=== PATIENT | female | born 1955 | race Caucasian/White ===

== ENCOUNTER → 2019-11-17 | Outpatient (CLI) | payer BC ==
--- NOTE | 2019-11-17 12:45 | MR ---
EXAMINATION TYPE: MR shoulder LT wo con DATE OF EXAM: 11/17/2019 11:58 AM COMPARISON: NONE HISTORY: Pain in left shoulder TECHNIQUE: Multiplanar multispin echo imaging of the left shoulder was performed. FINDINGS: Rotator cuff : Thickening and heterogeneity of the supraspinatus tendon compatible chronic tendinopat hy. No evidence for full-thickness tear or partial tear. The subscapularis constituent of the rotator cuff is intact. Bursa: No bursal effusion or thickening is seen. Musculature: There is no muscular tear, contusion, or atrophy. Acromioclavicular joint : There are mild degenerative changes of the acromioclavicular joint. There is no anterior or lateral acromial downsloping. Subcoracoid fluid identified. Osseous structures : There are no fractures or regions of abnormal bone marrow signal intensity. Long biceps tendon : The biceps tendon is normally situated within the bicipital groove. Fluid is otilio ntified within the biceps tendon sheath which may reflect biceps tenosynovitis.. No complete or parti al biceps tendon tear is present. Glenohumeral Joint fluid : There is no glenohumeral joint effusion. Cartilage and Bone : No focal hyaline cartilage defects are noted. No Hill-Sachs, reverse Hill-Sachs, or bony Bankart lesions are seen. Labrum : There are no SLAP or soft tissue Bankart lesions. No paralabral cysts are seen. OTHER FINDINGS : none IMPRESSION: 1. Chronic tendinopathy supraspinatus tendon without evidence for tear. 2. Fluid within the biceps tendon sheath may reflect biceps tendon synovitis. 3. Fluid along the undersurface of the coracoid.
== END | disposition home or self-care (01) ==
LOC: RADMRIMAIN 11:14
PROVIDERS: ATTEND Orthopaedic Surgery
DX: M67.814 Other specified disorders of tendon, left shoulder (principal); M25.412 Effusion, left shoulder

== ENCOUNTER → 2020-06-28 | Outpatient (CLI) | payer MEDICARE | END | disposition home or self-care (01) | LOC: LABWHC1 14:47 | PROVIDERS: ATTEND Orthopaedic Surgery | DX: Z01.812 Encounter for preprocedural laboratory examination (principal) | CPT/HCPCS: 87070 ==

== ENCOUNTER 2020-07-08 12:59 | Observation (INO) | payer BC, MEDICARE ==
[2020-07-04 18:14] VITALS: BMI 35.2
--- NOTE | 2020-07-07 11:59 | HP ---
HISTORY AND PHYSICAL REASON FOR ADMISSION: Surgery scheduled 07/08/2020 HISTORY OF PRESENT ILLNESS: Sammie Orr is a 64-year-old patient seen with symptomatic right knee osteoarthritis. We discussed options. She elected to proceed with right total knee arthroplasty. Consent was obtained. Medical clearance was provided by Dr. Rodas. PAST MEDICAL HISTORY: Hypertension, hyperlipidemia, gastroesophageal reflux disease. PAST SURGICAL HISTORY: D and C, foot surgery, knee arthroscopy, lumbar spine surgery. DAILY MEDICATIONS: Amitriptyline, atenolol, Baclofen, [place], omeprazole. ALLERGIES: FLEXERIL, IODINE. SOCIAL HISTORY: She smokes half pack of cigarettes daily. PHYSICAL EVALUATION OF THE RIGHT KNEE: Range of motion is -2/2 to 115. Tenderness along the medial joint line. Crepitus medial patellofemoral compartments with range of motion. Pain with patellofemoral compression. Ligaments stable. Hip rotation without pain. Distal neurovascular exam is intact. RADIOGRAPHS: Radiographs of the right knee reveal severe osteoarthritic changes. IMPRESSION: 1. Right knee osteoarthritis. 2. Hypertension. 3. Hyperlipidemia. 4. Gastroesophageal reflux disease. PLAN: Right total knee arthroplasty. MMODL / IJN: [id number] /
[~2020-07-08 12:59] MED LIST: ACETAMINOPHEN TAB 500 MG TAB PO PRN; DEXAMETHASONE SOD PHOSPHATE 4 MG/ML 1 ML VIAL IV ONE; MELOXICAM 7.5 MG TAB PO PRN; ROPIVACAINE/EPI/CLONIDINE/KET 50 ML SYRINGE MISCELLANE PRN; TRANEXAMIC ACID 1,000 MG in SODIUM CHLORIDE 0.9% 100 ML IVPB PRN
[2020-07-08] MEDS: LACTATED RINGERS 1,000 ML IV SCH ×3 (14:00→18:02)
[2020-07-08] MEDS ORDERED: ONDANSETRON 4 MG/2 ML VIAL ONE (14:02)
[2020-07-08] MEDS ORDERED: LIDOCAINE 1% (10MG/ML) FOR IV START INTRADERMA ONE (14:10)
[2020-07-08] MEDS ORDERED: MIDAZOLAM 2 MG/2 ML VIAL IVP ONE (14:20)
[2020-07-08] MEDS ORDERED: fentaNYL (PF) 50 MCG/ML 2 ML AMP IVP ONE (14:20)
[2020-07-08] MEDS ORDERED: SODIUM CHLORIDE 0.9% 100 ML BAG ONE (14:47)
[2020-07-08] MEDS ORDERED: TRANEXAMIC ACID 1,000 MG/10 ML VIAL ONE (14:47)
[2020-07-08] MEDS ORDERED: PROPOFOL 10 MG/ML 20 ML VIAL IV ONE (14:47)
[2020-07-08] MEDS ORDERED: MIDAZOLAM 2 MG/2 ML VIAL ONE (14:47)
[2020-07-08] MEDS ORDERED: fentaNYL (PF) 50 MCG/ML 2 ML AMP ONE (14:47)
[2020-07-08] MEDS ORDERED: ROPIVACAINE 5 MG/ML 30 ML VIAL ONE (14:47)
--- NOTE | 2020-07-08 15:36 | P.ANPRN ---
Procedure Note - Anesthesia - Nerve Block Performed Right Adductor Canal Infusion Time Out Performed: Yes (1415) Date of Procedure: 07/08/20 Procedure Start Time: 14:17 Procedure Stop Time: 14:24 Location of Patient: PreOp Indication: Acute Post-Operative Pain, Requested by Surgeon Specifically requested for management of pain by : Avinash Agosto Sedation Type: Sedate with meaningful contact maintained Preparation: Sterile Prep Position: Supine Catheter Depth at Skin (cm): 9 Catheter: Indwelling Needle Types: Pajunk Needle Gauge: 21 Ultrasound used to visualize needle placement: Yes Ultrasound used to observe medication spread: Yes Injectate: 0.5% Ropivacaine (see comment for volume) (15cc) Blood Aspirated: No Pain Paresthesia on Injection Noted: No Resistance on Injection: Normal Image Stored and Saved: Yes Events: Uneventful and Well Tolerated Right iPack Single Time Out Performed: Yes (1415) Date of Procedure: 07/08/20 Procedure Start Time: 14:25 Procedure Stop Time: 14:31 Location of Patient: PreOp Indication: Acute Post-Operative Pain, Requested by Surgeon Sedation Type: Sedate with meaningful contact maintained Preparation: Sterile Prep Position: Supine Catheter: None Needle Types: Pajunk Needle Gauge: 21 Ultrasound used to visualize needle placement: Yes Ultrasound used to observe medication spread: Yes Injectate: 0.5% Ropivacaine (see comment for volume) (15cc) Blood Aspirated: No Pain Paresthesia on Injection Noted: No Resistance on Injection: Normal Image Stored and Saved: Yes Events: Uneventful and Well Tolerated
[2020-07-08] MEDS ORDERED: LACTATED RINGERS 1,000 ML IV ONE (15:52)
[2020-07-08] MEDS ORDERED: HYDROmorphone 0.2 MG/1 ML SYRINGE IVP PRN (16:33)
[2020-07-08] MEDS ORDERED: HYDROcodone/APAP 7.5-325MG 1 EACH TAB PO PRN (16:33)
[2020-07-08] MEDS ORDERED: HYDROcodone/APAP 5-325MG 1 EACH TAB PO PRN (16:33)
[2020-07-08] MEDS ORDERED: NALOXONE 0.4 MG/ML 1 ML VIAL IV PRN (16:33)
[2020-07-08] MEDS ORDERED: ONDANSETRON 4 MG/2 ML VIAL IVP PRN (16:33)
[2020-07-08] MEDS ORDERED: HYDROmorphone 0.5 MG/0.5 ML SYRINGE IVP PRN (16:33)
--- NOTE | 2020-07-08 16:33 | P.OP ---
Date of Procedure: 07/08/20 Preoperative Diagnosis: Right knee osteoarthritis Postoperative Diagnosis: Right knee osteoarthritis Procedure(s) Performed: Right total knee arthroplasty Implants: 1. Depuy attune size 6 right narrow cruciate retaining cemented femur 2. Depuy attune size 5 fixed bearing cemented tibial baseplate 3. Depuy attune size 5 fixed bearing cruciate retaining 10 mm polyethylene tibial insert 4. 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 After treatment options were discussed, she elected to proceed with total knee arthroplasty Operative Findings: See description of procedure Description of Procedure: Patient was taken to the operative suite after having an adductor canal catheter placed by the department of anesthesia. Patient underwent a spinal anesthetic by the department of anesthesia. Patient was given preoperative IV intake antibiotics and TXA. A well-padded tourniquet was placed about the right lower extremity. The lower extremity was then prepped and draped in the normal sterile orthopedic fashion. The extremity was elevated, a tourniquet was insufflated to 300. A standard anterior incision was made sharply through skin. Dissection was taken down through the subcutaneous soft tissues down to the extensor mechanism. A medial arthrotomy was performed, patella was everted and knee was flexed. There was advanced osteoarthritis noted. I introduced my distal intramedullary femoral drill. I then introduced the distal femoral cu tting jig. Brian RICHEY secured the cutting jig with 2 pins. I held retractors in position while Brian RICHEY performed the distal femoral resection through the guide area we now removed her distal femoral cutting guide. We now placed our 4-in-1 femoral cutting block and positioned and it was secured with 2 pins by Brian RICHEY while I held the block in position. The distal femoral finishing was now completed. A proximal tibial cutting guide was positioned. I held the guide in the appropriate position with both hands well Brian RICHEY inserted stabilizing pins into the guide. Proximal tibial cut was made. We now placed a trial femoral component into position, along with an appropriate size tibial tray and insert. We now took the knee through range of motion and had full extension good flexion and good overall soft tissue balance noted. The patella was everted and stabilized with 2 towel clips held by Brian RICHEY while I performed a flush with patellar quad tendon utilizing a fresh sawblade. We templated the patella, appropriate drill holes were made. An appropriate trial patella was positioned, knee was taken through full range of motion with the patella tracking very nicely. The trial patella was removed. Drill holes were made through the femoral component. All trial components were removed after marking off the appropriate rotation of the tibia. Retractors were now positioned along the proximal tibia. An appropriate keel punch was made with the appropriate size tibial guide by myself on Brian RICHEY assisted by holding retractors. At this point appropriate size implants were chosen and opened. The joint was irrigated copiously with pulse lavage mechanical irrigation. The posterior capsule was infiltrated with local analgesic. The wound was irrigated with pulse lavage mechanical irrigation. We mixed antibiotic methylmethacrylate. We placed the knee into flexion. We placed multiple retractors assisted by Brian RICHEY to expose the proximal tibia. Once the methyl methacrylate was ready, the tibial component was cemented into place removing any excess methylmethacrylate form by both myself and Brian RICHEY. The femoral component was cemented into place removing the removing any excess methylmethacrylate performed by both myself and Brian RICHEY. We then inserted the appropriate size polyethylene tibial insert. We made sure that it was locked into position. We took the knee into full extension, and then back in a flexion making sure we had removed any excess methylmethacrylate. The patellar component was then cemented down and secured with clamp. Excess methylmethacrylate removed. We kept the knee in full extension, patellar clamp in position until methylmethacrylate had hardened. Once it had hardened the patellar clamp was removed. The knee was taken through full range of motion. The patella tracked nicely. There was good soft tissue balancing. The tourniquet was now released. Additional hemostasis was achieved via electrocautery. A second gram of TXA was given. The wound again was irrigated with pulse lavage mechanical irrigation. The superficial soft tissues were infiltrated local analgesic. The extensor mechanism was repaired with Ethibond. We checked the repair with range of motion and it was stable. The subcutaneous soft tissues were repaired with Vicryl in layers. The skin was approximated with pernio/Dermabond. Sterile dressings were applied followed by loose web roll and Holger bandage. The patient was transferred to a bed, and taken to recovery in stable and satisfactory condition. Brian RICHEY assisted with this complex procedure.
[2020-07-08] MEDS: HYDROmorphone 0.5 MG/0.5 ML SYRINGE IVP PRN ×4 (17:02→23:41)
[2020-07-08] MEDS ORDERED: ROPIVACAINE 0.2%-NS ON-Q PUMP 2 MG/ML EACH MISCELLANE ONE (17:18)
[2020-07-08] MEDS ORDERED: fentaNYL (PF) 50 MCG/ML 2 ML AMP IV ONE (17:30)
--- NOTE | 2020-07-08 19:05 | XR ---
EXAMINATION TYPE: XR knee limited RT DATE OF EXAM: 07/08/2020 COMPARISON: NONE HISTORY: Postop knee surgery TECHNIQUE: 2 views FINDINGS: There is right knee prosthesis. Components are in anatomic position. IMPRESSION: No complicating process seen.
[2020-07-08] MEDS: ENOXAPARIN 30 MG/0.3 ML SYRINGE SQ SCH (20:27)
[2020-07-08] MEDS: SENNOSIDES-DOCUSATE SODIUM 1 EACH TAB PO SCH (20:27)
--- NOTE | 2020-07-08 22:07 | P.CONS ---
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 She reported ongoing pain at the right knee, 8 out of 10 at the time of interview. She denied additional complaints. Denied chest pain, shortness of breath, sore throat, fever, weakness, numbness, tingling. Denied abdominal pain, nausea, vomiting, diarrhea. Reports compliance with her medications at home. Review of systems: Pertinent positives and negatives as discussed in HPI, a complete review of systems was performed and all other systems are negative. Physical examination: General: non toxic, no distress, appears at stated age, Obese Derm: no unusual rashes/lesions no unusual ecchymoses, warm, dry Head: atraumatic, normocephalic, symmetric Eyes: EOMI, no lid lag, anicteric sclera, pupils equal round reactive to light ENT: Nose and ears atraumatic, no thrush, no pharyngeal erythema Neck: No thyromegaly, no cervical lymphadenopathy, trachea midline, supple Mouth: no lip lesion, mucus membranes moist Cardiovascular: S1S2 reg, no murmur, positive posterior tibial pulse bilateral, no edema, capillary refill less than 2 seconds Lungs: CTA bilateral, no rhonchi, no rales , no accessory muscle use Abdominal: soft, nontender to palpation, no guarding, no appreciable organomegaly, normal bowel sounds Ext: no gross muscle atrophy, muscle strength 5 out of 5 of bilateral upper extremities, strength 3 out of 5 of the left lower extremity, right lower extremity able to move toes with strength at the ankle within normal limits but otherwise limited due to pain postoperatively, overlying Holger bandage in place on the right knee, no contractures, Neuro: CN II-XI grossly intact, light touch intact all 4 extremities, finger to nose within normal limits, Psych: Alert, oriented, appropriate affect Assessment/plan Chronic conditions: hypertension, hyperlipidemia, COPD -Continue with home medications Status post right knee replacement -Management including pain control as per the surgical service We appreciate this opportunity to be involved in this patient's care. We will follow the patient with you. For any further questions, please not hesitate to contact the [facility] inpatient team. Past Medical History Past Medical History: Deep Vein Thrombosis (DVT), GERD/Reflux, Hyperlipidemia, Hypertension Additional Past Medical History / Comment(s): neuropathy, left leg has "loss of feeling" DVT 1999? rt leg after bunion sx, History of Any Multi-Drug Resistant Organisms: MRSA Year Discovered:: 1999? MDRO Source:: rt foot Past Surgical History: Back Surgery, Section, Orthopedic Surgery Additional Past Surgical History / Comment(s): bunionectomy, back sx X2, meniscus sx rt knee Past Anesthesia/Blood Transfusion Reactions: Previous Problems w/ Anesthesia, Postoperative Nausea & Vomiting (PONV) Additional Past Anesthesia/Blood Transfusion Reaction / Comm: prev low b/p in post op Past Psychological History: No Psychological Hx Reported Smoking Status: Current every day smoker Past Alcohol Use History: Rare Additional Past Alcohol Use History / Comment(s): smokes 1/2 ppd Past Drug Use History: None Reported Medications and Allergies Home Medications Medication Instructions Recorded Confirmed Type Amitriptyline HCl 10 mg PO HS 07/04/20 07/04/20 History Atenolol [Tenormin] 50 mg PO BID 07/04/20 07/04/20 History Baclofen 10 mg PO TID 07/04/20 07/04/20 History Diazepam [Valium] 5 mg PO HS PRN 07/04/20 07/04/20 History Furosemide [Lasix] 40 mg PO DAILY 07/04/20 07/04/20 History Gabapentin [Neurontin] 600 mg PO TID 07/04/20 07/04/20 History HYDROcodone/APAP 10-325MG [Anselmo 1 tab PO Q6HR PRN 07/04/20 07/04/20 History 10-325] Losartan Potassium 100 mg PO QAM 07/04/20 07/04/20 History Omeprazole [PriLOSEC] 20 mg PO DAILY 07/04/20 07/04/20 History Rosuvastatin Calcium 5 mg PO DAILY 07/04/20 07/04/20 History amLODIPine [Norvasc] 5 mg PO QAM 07/04/20 07/04/20 History Fluticasone Propion/Salmeterol 1 puff IH BID 07/05/20 07/05/20 History [Airduo Digihaler 113-14 Mcg] Allergies Allergy/AdvReac Type Severity Reaction Status Date / Time cyclobenzaprine Allergy throat Verified 07/08/20 13:31 Swelling Iodinated Contrast Media Allergy Anaphylaxis Verified 07/08/20 13:31 morphine AdvReac Nausea & Verified 07/08/20 13:31 Vomiting Physical Exam Vitals: Vital Signs Temp Pulse Resp BP Pulse Ox 07/08/20 18:00 53 L 18 127/72 99 07/08/20 17:45 51 L 18 117/68 99 07/08/20 17:30 53 L 18 131/72 99 07/08/20 17:15 52 L 18 114/64 99 07/08/20 17:01 53 L 18 118/63 94 L 07/08/20 16:48 97.5 F L 55 L 18 106/59 94 L 07/08/20 13:37 98.9 F 57 L 16 177/98 97 Intake and Output 07/08/20 07/08/20 07/08/20 06:59 14:59 22:59 Intake Total 1050 1020 Output Total 25 Balance 1050 995 Intake: IV 1050 1020 Output: Estimated Blood Loss 25 Other: Weight 92.8 kg 92.8 kg
[2020-07-08] MEDS: diazePAM 5 MG TAB PO PRN (22:48)
[2020-07-09] MEDS: HYDROcodone/APAP 7.5-325MG 1 EACH TAB PO PRN ×3 (01:28→20:48)
[2020-07-09 02:10] LABS: ALT 13 U/L (4-34); AST 27 U/L (14-36); African American GFR (CKD) 81 (>60 ml/min/1.73 sqM); Albumin 3.7 g/dL (3.5-5.0); Albumin/Globulin Ratio 1.3; Alkaline Phosphatase 122 U/L (38-126); Anion Gap 7 mmol/L; Blood Urea Nitrogen 6 mg/dL (7-17); Carbon Dioxide 26 mmol/L (22-30); Chloride 101 mmol/L (98-107); Globulin 2.8 g/dL; Glucose 119 mg/dL (74-99); Non-African American GFR(CKD) 70 (>60 ml/min/1.73 sqM); Potassium 4.4 mmol/L (3.5-5.1); Sodium 134 mmol/L (137-145); Total Bilirubin 0.3 mg/dL (0.2-1.3); Total Protein 6.5 g/dL (6.3-8.2)
[2020-07-09 02:11] LABS: Calcium 8.9 mg/dL (8.4-10.2)
[2020-07-09 02:21] LABS: Basophils % (A) 0 %; Eosinophils % (A) 0 %; HCT 38.7 % (34.0-46.0); HGB 12.8 gm/dL (11.4-16.0); Lymphocytes # (A) 0.6 k/uL (1.0-4.8); Lymphocytes % (A) 7 %; MCH 29.1 pg (25.0-35.0); MCHC 33.1 g/dL (31.0-37.0); MCV 88.1 fL (80.0-100.0); Mean Platelet Volume 7.1; Monocytes # (A) 0.4 k/uL (0-1.0); Monocytes % (A) 5 %; Neutrophils # (A) 7.4 k/uL (1.3-7.7); Neutrophils % (A) 88 %; Platelet Count 231 k/uL (150-450); RBC 4.39 m/uL (3.80-5.40); RDW 13.6 % (11.5-15.5); WBC 8.4 k/uL (3.8-10.6)
[2020-07-09] MEDS: HYDROmorphone 1 MG/ML 1 ML SYRINGE IVP PRN ×6 (03:47→23:46)
[2020-07-09] MEDS ORDERED: KETOROLAC 15 MG/ML 1 ML VIAL IVP PRN (05:49)
[2020-07-09] MEDS: LACTATED RINGERS 1,000 ML IV SCH ×2 (06:53→14:38)
[2020-07-09] MEDS: GABAPENTIN 300 MG CAP PO SCH ×3 (08:30→20:47)
[2020-07-09] MEDS: LOSARTAN 50 MG TAB PO SCH (08:30)
[2020-07-09] MEDS: MELOXICAM 7.5 MG TAB PO SCH (08:31)
[2020-07-09] MEDS: amLODIPine 5 MG TAB PO SCH (08:31)
[2020-07-09] MEDS: PANTOPRAZOLE 40 MG TABLET PO SCH (08:31)
[2020-07-09] MEDS: atenoloL 50 MG TAB PO SCH ×2 (08:31→20:47)
[2020-07-09] MEDS: ENOXAPARIN 30 MG/0.3 ML SYRINGE SQ SCH ×2 (08:31→20:59)
[2020-07-09] MEDS: FUROSEMIDE 40 MG TAB PO SCH (08:31)
[2020-07-09] MEDS: ATORVASTATIN 10 MG TAB PO SCH (08:32)
[2020-07-09] MEDS: SYMBICORT 160-4.5 MCG INHALER INHALATION SCH ×2 (09:06→20:32)
--- NOTE | 2020-07-09 09:24 | P.PN ---
Subjective Progress Note Date: 07/09/20 Pt reports improvement in pain from last night. Good Appetite. No other acute complaints at this time. Objective - Vital Signs Vital signs: Vital Signs Temp 97.9 F 07/09/20 07:48 Pulse 64 07/09/20 07:48 Resp 16 07/09/20 07:48 BP 122/74 07/09/20 07:48 Pulse Ox 93 L 07/09/20 07:48 Intake & Output 07/08/20 07/09/20 07/09/20 18:59 06:59 18:59 Intake Total 2069 Output Total Balance 2044 Weight 92.8 kg Intake: IV 2069 Output: Estimated Blood Loss 25 Other: # Voids 1 - Exam Gen: awake, alert HEENT: normocephalic, atraumatic, good hearing acuity, moist mucous membranes Resp: good air exchange, breathing comfortably with no accessory muscle use CVS: good distal perfusion x 4, GI: soft, NTTP, ND : no SPT, no CVAT, carrera catheter not present MSK: no pitting edema, no clubbing Neuro: non-focal, moving all extremities Psych: cooperative, euthymic mood - Labs CBC & Chem 7: 07/09/20 01:34 07/09/20 01:34 Labs: Abnormal Lab Results - Last 24 Hours (Table) 07/09/20 07/09/20 Range/Units 01:34 01:34 Lymphocytes # 0.6 L (1.0-4.8) k/uL Sodium 134 L (137-145) mmol/L BUN 6 L (7-17) mg/dL Glucose 119 H (74-99) mg/dL Assessment and Plan Assessment: Chronic conditions: hypertension, hyperlipidemia, COPD -Continue with home medications Status post right knee replacement -Management including pain control as per the surgical service We appreciate this opportunity to be involved in this patient's care. We will follow the patient with you. For any further questions, please not hesitate to contact the [facility] [place] inpatient team. Medically stable for discharge when felt appropriate by primary team
[2020-07-09] MEDS: BACLOFEN 10 MG TAB PO SCH ×3 (09:45→20:47)
--- NOTE | 2020-07-09 10:03 | P.PN ---
Progress Note - Text Progress Note Date: 07/09/20 Patient seen at 0650 am 64 y/o female post op day #1 TKA with an adductor canal catheter continuous infusion for post op pain management. Patient complains of no pain relief and states pain last night was 9/10 and today a VAS of 8/10 but decreasing with po and IV pain medications. She denies any lower extremity numbness/weakness/paresthesias. Discussed with patient the option of removing the adductor canal catheter if she feels it is not of benefit. Patient to leave catheter in place for now. Advised and increased in the rate on the infusion device. Will follow up as indicated.
--- NOTE | 2020-07-09 11:44 | P.PN ---
Subjective Progress Note Date: 07/09/20 Principal diagnosis: Right knee osteoarthritis Patient was seen at bedside this morning. On entering room, patient was sitting up in chair with legs elevated. She was icing knee. She says she is in a lot of pain since yesterday. She does not think the adductor canal block worked. She says she was up with physical therapy this morning and it was very difficult to move around on the knee. She says besides the pain, she says it is difficult to put weight on that right knee. With physical therapy, she said she is able to get up to the bathroom and get back to chair, and that was it. She says she has not had a bowel movement yet, but she has been passing gas. She says she has been using incentive spirometer. She says she has pain mostly on the backside of the knee. Patient says she does live at home alone and with a few steps, but she says her neighbor will stay with her for a few days until she is doing better. Patient denies any chest pain, fever, shortness of breath, change in vision. Objective - Vital Signs Vital signs: Vital Signs Temp 97.9 F 07/09/20 07:48 Pulse 64 07/09/20 07:48 Resp 16 07/09/20 07:48 BP 122/74 07/09/20 07:48 Pulse Ox 93 L 07/09/20 07:48 Intake & Output 07/08/20 07/09/20 07/09/20 18:59 06:59 18:59 Intake Total 2069 Output Total Balance 2044 Weight 92.8 kg Intake: IV 2069 Output: Estimated Blood Loss 25 Other: # Voids 1 - Exam Incision is clean, dry, and intact. The silver foam tape is in good condition. There is minimal soft tissue swelling and ecchymosis surrounding the medial and lateral aspects of the incision. Calf is soft, no tenderness with palpation. Plantar flexion, dorsiflexion, EHL, FHL are intact. Sensory exam to light touch throughout the extremity is intact, dorsal pedis pulses 2+. - Labs CBC & Chem 7: 07/09/20 01:34 07/09/20 01:34 Labs: Abnormal Lab Results - Last 24 Hours (Table) 07/09/20 07/09/20 Range/Units 01:34 01:34 Lymphocytes # 0.6 L (1.0-4.8) k/uL Sodium 134 L (137-145) mmol/L BUN 6 L (7-17) mg/dL Glucose 119 H (74-99) mg/dL Assessment and Plan Assessment: Postop day 1 status post right total knee arthroplasty Plan: 1. Right knee osteoarthritis - right total knee arthroplasty performed yeste rday, 07/08/2020. Today, patient is seen at bedside. She is in significant pain, and has been using both IV and oral pain medications. At this time she is not ready to go home today. Would like to get her pain under better control, and have her be able to ambulate out to the feliz and up-and-down a couple stairs. 2. Pain management - continue [place]. Use IV pain medication sparingly. 3. Encourage incentive spirometer use 4. GI prophylaxis - continue senna 5. DVT prophylaxis - continue Lovenox 6. PT/OT - weightbearing as tolerated/with walker. Patient is able to get to the bathroom and back to the bed this morning. Would like patient to walk the feliz and up-and-down a couple stairs before going home. 7. Discharge planning - patient's pain needs to be under better control before going home. Patient also needs to be able to walk down the hallway and up and down a couple stairs with physical therapy. Planning on discharge tomorrow. Time with Patient: Less than 30
[2020-07-09] MEDS: NICOTINE 14MG/24HR PATCH TRANSDERM SCH (11:56)
[2020-07-09] MEDS: SENNOSIDES-DOCUSATE SODIUM 1 EACH TAB PO SCH (20:47)
[2020-07-09] MEDS: AMITRIPTYLINE HCL 10 MG TAB PO SCH (20:47)
[2020-07-09] MEDS: diazePAM 5 MG TAB PO PRN (23:46)
[2020-07-10] MEDS: LACTATED RINGERS 1,000 ML IV SCH ×4 (02:12→16:18)
[2020-07-10] MEDS: HYDROcodone/APAP 7.5-325MG 1 EACH TAB PO PRN ×2 (02:47→08:27)
[2020-07-10] MEDS: HYDROmorphone 1 MG/ML 1 ML SYRINGE IVP PRN (04:55)
[2020-07-10] MEDS: SYMBICORT 160-4.5 MCG INHALER INHALATION SCH ×2 (07:15→20:28)
[2020-07-10] MEDS: LOSARTAN 50 MG TAB PO SCH (08:27)
[2020-07-10] MEDS: GABAPENTIN 300 MG CAP PO SCH ×3 (08:27→20:17)
[2020-07-10] MEDS: ENOXAPARIN 30 MG/0.3 ML SYRINGE SQ SCH ×2 (08:27→20:18)
[2020-07-10] MEDS: atenoloL 50 MG TAB PO SCH ×2 (08:27→20:17)
[2020-07-10] MEDS: NICOTINE 14MG/24HR PATCH TRANSDERM SCH (08:28)
[2020-07-10] MEDS: BACLOFEN 10 MG TAB PO SCH ×3 (08:28→20:17)
[2020-07-10] MEDS: ATORVASTATIN 10 MG TAB PO SCH (08:28)
[2020-07-10] MEDS: MELOXICAM 7.5 MG TAB PO SCH (08:28)
[2020-07-10] MEDS: amLODIPine 5 MG TAB PO SCH (08:29)
[2020-07-10] MEDS: FUROSEMIDE 40 MG TAB PO SCH (08:29)
--- NOTE | 2020-07-10 08:30 | US ---
EXAMINATION TYPE: US venous doppler duplex LE RT DATE OF EXAM: 07/10/2020 7:25 AM COMPARISON: NONE CLINICAL HISTORY: Rule out DVT. Post op total knee x 2 days, SIDE PERFORMED: Right TECHNIQUE: The lower extremity deep venous system is examined utilizing real time linear array sonog alex with graded compression, doppler sonography and color-flow sonography. VESSELS IMAGED: Common Femoral Vein Deep Femoral Vein Greater Saphenous Vein * Femoral Vein Popliteal Vein Small Saphenous Vein * Proximal Calf Veins (* superficial vessels) Difficult sonographic study due to extensive swelling and patients pain tolerance Right Leg: Negative for DVT IMPRESSION: 1. Study is limited due to extensive swelling of the right lower extremity and patient's pain toleran ce for compression. No definite evidence of deep venous thrombosis in the right lower extremity is se en.
[2020-07-10] MEDS: PANTOPRAZOLE 40 MG TABLET PO SCH (08:33)
--- NOTE | 2020-07-10 09:05 | P.PN ---
Subjective Progress Note Date: 07/10/20 Principal diagnosis: Status post right total knee arthroplasty patient is evaluated today at bedside, she is resting in her hospital chair. Patient's pain is still not under control she states. No significant swelling right lower extremity, a Doppler was ordered early this morning. She denies any headaches, lightheadedness, chest pain or shortness of breath. Objective - Vital Signs Vital signs: Vital Signs Temp 99.0 F 07/10/20 07:00 Pulse 66 07/10/20 07:00 Resp 17 07/10/20 07:00 BP 118/62 07/10/20 07:00 Pulse Ox 96 07/10/20 07:00 Intake & Output 07/09/20 07/10/20 07/10/20 18:59 06:59 18:59 Other: # Voids 3 1 - Exam Right lower extremity: Incision is clean, dry, and intact. The foam dressing is in good condition. There is minimal soft tissue swelling and ecchymosis surrounding the medial and lateral aspects of the incision. Calf is soft, no tenderness with palpation. Plantar flexion, dorsiflexion, EHL, FHL are intact. Sensory exam to light touch throughout the extremity is intact, dorsal pedis pulses 2+. - Labs CBC & Chem 7: 07/09/20 01:34 07/09/20 01:34 Assessment and Plan Assessment: Post op day #1 s/p right total knee arthroplasty Plan: Pain control, will dc [place] and start Percocet 5mg/325mg 1 tab q4hr DVT prophylaxis, continue current medication. We'll likely utilize Eliquis at discharge Wound care instructions were discussed Icing and elevating techniques discussed Continue with daily physical therapy, patient will need to utilize stairs Had a long discussion with patient today regarding her activity level of the need to get up and continue moving. She will utilize the walker at all times during this period Discharge planning: Hopeful discharged to home tomorrow, we'll discuss case management possibility of rehab placement if she continues to not advance her activities Time with Patient: Less than 30
[2020-07-10] MEDS: oxyCODONE-APAP 5-325MG 1 EACH TAB PO PRN ×2 (11:02→15:08)
--- NOTE | 2020-07-10 11:48 | P.PN ---
Subjective Progress Note Date: 07/10/20 No new complaints at this time. Ongoing stiffness, throbbing, and pain in RLE. Ambulating better, likely dispo home when ready by primary team. Objective - Vital Signs Vital signs: Vital Signs Temp 99.0 F 07/10/20 07:00 Pulse 66 07/10/20 07:00 Resp 17 07/10/20 07:00 BP 118/62 07/10/20 07:00 Pulse Ox 96 07/10/20 07:00 Intake & Output 07/09/20 07/10/20 07/10/20 18:59 06:59 18:59 Other: # Voids 3 1 - Exam Gen: awake, alert HEENT: normocephalic, atraumatic, good hearing acuity, moist mucous membranes Resp: good air exchange, breathing comfortably with no accessory muscle use CVS: good distal perfusion x 4, GI: soft, NTTP, ND : no SPT, no CVAT, carrera catheter not present MSK: no pitting edema, no clubbing Neuro: non-focal, moving all extremities Psych: cooperative, euthymic mood - Labs CBC & Chem 7: 07/09/20 01:34 07/09/20 01:34 Assessment and Plan Assessment: Chronic conditions: hypertension, hyperlipidemia, COPD -Continue with home medications Status post right knee replacement -Management including pain control as per the surgical service We appreciate this opportunity to be involved in this patient's care. We will follow the patient with you. For any further questions, please not hesitate to contact the sound inpatient team. Medically stable for discharge when felt appropriate by primary team
[2020-07-10] MEDS: HYDROmorphone 0.5 MG/0.5 ML SYRINGE IVP PRN ×2 (17:51→20:18)
[2020-07-10 19:41] LABS: Appearance,Urine Clear (Clear); Bilirubin,Urine Negative (Negative); Blood,Urine Small (Negative); Color,Urine Colorless; Glucose,Urine (UA) Negative (Negative); Ketones,Urine Negative (Negative); Leukocyte Esterase,Urine Negative (Negative); Nitrite,Urine Negative (Negative); PH, Urine 7.5 (5.0-8.0); Protein,Urine Negative (Negative); RBC,Urine 4 /hpf (0-5); Specific Gravity,Urine 1.008 (1.001-1.035); Squamous Epithelial Cell,Urine 1 /hpf (0-4); Urobilinogen,Urine <2.0 mg/dL (<2.0); WBC,Urine 1 /hpf (0-5)
[2020-07-10] MEDS: diazePAM 5 MG TAB PO PRN (20:17)
[2020-07-10] MEDS: SENNOSIDES-DOCUSATE SODIUM 1 EACH TAB PO SCH (20:17)
[2020-07-10] MEDS: AMITRIPTYLINE HCL 10 MG TAB PO SCH (20:17)
[2020-07-11] MEDS: HYDROmorphone 0.5 MG/0.5 ML SYRINGE IVP PRN (00:25)
[2020-07-11] MEDS: LACTATED RINGERS 1,000 ML IV SCH ×2 (00:37)
[2020-07-11] MEDS: oxyCODONE-APAP 5-325MG 1 EACH TAB PO PRN ×2 (04:05→09:11)
[2020-07-11] MEDS: SYMBICORT 160-4.5 MCG INHALER INHALATION SCH (07:01)
[2020-07-11 07:31] VITALS: BP 120/72; PULSE 67; RESP 17; TEMP 98.8
--- NOTE | 2020-07-11 08:38 | P.PN ---
Subjective Progress Note Date: 07/11/20 Principal diagnosis: Status post right total knee arthroplasty Patient is evaluated today at bedside, she is resting in her hospital bed. She states that the pain is better controlled today with her oral medication that was altered yesterday. I spoke with case management and both physical therapy yesterday, they stated that the patient did do fairly well with stairs and ambu lating with minimal assistance. She denies any headaches, lightheadedness, chest pain or shortness of breath. Objective - Vital Signs Vital signs: Vital Signs Temp 98.8 F 07/11/20 07:31 Pulse 67 07/11/20 07:31 Resp 17 07/11/20 07:31 BP 120/72 07/11/20 07:31 Pulse Ox 93 L 07/11/20 07:31 Intake & Output 07/10/20 07/11/20 07/11/20 18:59 06:59 18:59 Intake Total 540 Balance 540 Intake: Intake, IV Titration 240 Amount Lactated Ringers 1,000 ml 240 @ 20 mls/hr IV .Q24H TRES Rx#:[id number] Oral 300 Other: # Voids 6 1 - Exam Right lower extremity: Incision is clean, dry, and intact. The foam dressing is in good condition. There is minimal soft tissue swelling and ecchymosis surrounding the medial and lateral aspects of the incision. Calf is soft, no tenderness with palpation. Plantar flexion, dorsiflexion, EHL, FHL are intact. Sensory exam to light touch throughout the extremity is intact, dorsal pedis pulses 2+. - Labs CBC & Chem 7: 07/09/20 01:34 07/09/20 01:34 Labs: Abnormal Lab Results - Last 24 Hours (Table) 07/10/20 Range/Units 19:30 Urine Blood Small H (Negative) Assessment and Plan Assessment: Post op day #3 s/p right total knee arthroplasty Plan: Pain control, plan for discharge oxycodone 5 mg/325 mg, this will utilize for the next 1-2 weeks and then plan to switch back over to her normally prescribed [place] 10 mg/325 mg DVT prophylaxis, Eliquis 2.5 mg twice a day Wound care instructions were discussed Icing and elevating techniques discussed Continue with daily physical therapy, patient will need to utilize stairs Discharge planning: Planning for discharge home today Time with Patient: Less than 30
--- NOTE | 2020-07-11 08:44 | P.DS ---
Providers Date of admission: 07/09/20 16:11 Expected date of discharge: 07/11/20 Attending physician: Avinash Agosto Consults: 07/08/20 16:33 Consult Physician Routine Consulting Provider: Melvin Zhong Consult Reason/Comments: Medical management Do you want consulting provider notified?: Yes Primary care physician: Michael Montano DO Hospital Course: Date of admission: 07/08/2020 Date of discharge: 07/12/1999 Admission diagnosis: Status post right total knee arthroplasty Discharge diagnosis: Same Attending physician: Dr. Agosto Surgical procedures: Right total knee arthroplasty Brief history: Patient is a 64-year-old female with a history of progressive primary right knee osteoarthritis. At this point patient has failed conservative treatment measures and has opted to proceed with a elective right total knee arthroplasty. Hospital course: Details of patient's surgery can be found in operative report. Patient tolerated the procedure well and was subsequently transported to orthopedic floor. Patient's orthopeidc and medical care was provided daily. Patient had daily laboratory tests performed for evaluation of overall blood counts. Patient had daily physical therapy to include strengthening range of motion as well as education with walker ambulation. Patient was treated with Lovenox for their postoperative DVT prophylaxis during their inpatient stay. Patient was noted to have a relatively uneventful postoperative course. Patient reported satisfactory pain control with oral pain medications by postoperative day 2. Patient showed satisfactory progress with physical therapy. Patient moved steadily through the program and had no difficulty meeting the goals by postoperative day 3. Given patient's otherwise satisfactory course and having met physical therapy goals, plan is to discharge patient home on postoperative day 3. Discharge condition/disposition: Patient will be discharged home in stable condition. Discharge medications: Instructions are given on resumption of patient's normal daily medications per primary care recommendation, in addition patient will be prescribed Percocet 5 mg/325 mg, Senokot-S, Eliquist 2.5 mg. Discharge instructions: 1. Wound care and infection precautions, keep incision dry and covered while showering, no lotions, creams, moisturizers. No soaking, tubs, pools, hottubs. Do not scrub over the incision. Okay to remove some of her dressing on 07/15/2020, after removal of dressing okay to shower directly over incision 2. Weight-bear as tolerated with walker / cane until follow-up. 3. Ice and elevate when necessary. Do not exceed 20 minutes per hour with ice pack. 4. Utilize compression sleeve until seen at first follow up appointment. 5. Visiting nursing care. 6. Home physical therapy including home CPM. 7. Pain meds and anticoagulants per prescription. 8. Pain medication has potential to cause constipation. Increase oral fluid and fiber intake. Contact primary care provider if you have not had a bowel movement within 48 hours after discharge 9. No anti-inflammatory medication until discussed at first post operative visit, this including Motrin, Aleve, Mobic, Diclofenac. 10. Follow up in office at 2 weeks postop with Tim Vargas PA-C/Brian Sanchez 11. Follow up with your primary care doctor 7-10 days after discharge. 12. Contact [facility] with any questions, . Procedures: Right total knee arthroplasty Patient Condition at Discharge: Good Plan - Discharge Summary Discharge Rx Participant: Yes New Discharge Prescriptions: New Apixaban [Eliquis] 2.5 mg PO BID #60 tab oxyCODONE HCL/ACETAMINOPHEN [Percocet 5-325 mg] 1 tab PO Q4HR PRN #42 tab PRN Reason: Pain Sennosides/Docusate Sodium [Senna Plus 8.6-50 mg Softgel] 1 each PO DAILY PRN #30 capsule PRN Reason: Constipation Discontinued HYDROcodone/APAP 10-325MG [[place] 10-325] 1 tab PO Q6HR PRN PRN Reason: Pain No Action Gabapentin [Neurontin] 600 mg PO TID Atenolol [Tenormin] 50 mg PO BID Diazepam [Valium] 5 mg PO HS PRN PRN Reason: Insomnia amLODIPine [Norvasc] 5 mg PO QAM Rosuvastatin Calcium 5 mg PO DAILY Omeprazole [PriLOSEC] 20 mg PO DAILY Amitriptyline HCl 10 mg PO HS Furosemide [Lasix] 40 mg PO DAILY Baclofen 10 mg PO TID Losartan Potassium 100 mg PO QAM Fluticasone Propion/Salmeterol [Airduo Digihaler 113-14 Mcg] 1 puff IH BID Discharge Medication List Amitriptyline HCl 10 mg PO HS 07/04/20 [History] Atenolol [Tenormin] 50 mg PO BID 07/04/20 [History] Baclofen 10 mg PO TID 07/04/20 [History] Diazepam [Valium] 5 mg PO HS PRN 07/04/20 [History] Furosemide [Lasix] 40 mg PO DAILY 07/04/20 [History] Gabapentin [Neurontin] 600 mg PO TID 07/04/20 [History] Losartan Potassium 100 mg PO QAM 07/04/20 [History] Omeprazole [PriLOSEC] 20 mg PO DAILY 07/04/20 [History] Rosuvastatin Calcium 5 mg PO DAILY 07/04/20 [History] amLODIPine [Norvasc] 5 mg PO QAM 07/04/20 [History] Fluticasone Propion/Salmeterol [Airduo Digihaler 113-14 Mcg] 1 puff IH BID 07/05/20 [History] Apixaban [Eliquis] 2.5 mg PO BID #60 tab 07/11/20 [Rx] Sennosides/Docusate Sodium [Senna Plus 8.6-50 mg Softgel] 1 each PO DAILY PRN #30 capsule 07/11/20 [Rx] oxyCODONE HCL/ACETAMINOPHEN [Percocet 5-325 mg] 1 tab PO Q4HR PRN #42 tab 07/11/20 [Rx] Follow up Appointment(s)/Referral(s): [facility],Equipment [NON-STAFF] - (*Please call [facility] once home to arrange delivery of the Continuous Passive Motion (CPM) machine. ) Arvin Vargas, PAC [PHYSICIAN RESEARCH LABORATORY TECHNICIAN] - 2 Weeks [facility], [REFERRING] - ([facility] will call you to set up your first visit. ) Activity/Diet/Wound Care/Special Instructions: Orthopedic Discharge Instructions: 1. Wound care and infection precautions, keep incision dry and covered while showering, no lotions, creams, moisturizers. No soaking, pools, hot tubs. Do not scrub over incision. 2. Weight-bear as tolerated with walker / cane until follow-up. 3. Ice and elevate when necessary. Do not exceed 20 minutes per hour with ice pack. 4. Utilize compression sleeve until seen at first follow up appointment. 5. Pain meds and anticoagulants per prescription. 6. Pain medication has potential to cause constipation. Increase oral fluid and fiber intake. Contact primary care provider if you have not had a bowel mov ement within 48 hours after discharge. 7. No anti-inflammatory medication until discussed at first post operative visit, this including Motrin, Aleve, Mobic, Diclofenac. 8. Follow up in office at 2 weeks postop with Tim Vargas PA-C/Brian Blandon PA-C 9. Follow up with your primary care doctor 7-10 days after discharge. 10. Contact [facility] with any questions, . Discharge Disposition: HOME WITH HOME HEALTH SERVICES
[2020-07-11] MEDS: NICOTINE 14MG/24HR PATCH TRANSDERM SCH ×2 (09:08→09:17)
[2020-07-11] MEDS: ATORVASTATIN 10 MG TAB PO SCH (09:08)
[2020-07-11] MEDS: LOSARTAN 50 MG TAB PO SCH (09:08)
[2020-07-11] MEDS: BACLOFEN 10 MG TAB PO SCH (09:08)
[2020-07-11] MEDS: ENOXAPARIN 30 MG/0.3 ML SYRINGE SQ SCH (09:08)
[2020-07-11] MEDS: MELOXICAM 7.5 MG TAB PO SCH (09:09)
[2020-07-11] MEDS: atenoloL 50 MG TAB PO SCH (09:09)
[2020-07-11] MEDS: PANTOPRAZOLE 40 MG TABLET PO SCH (09:12)
[2020-07-11] MEDS: amLODIPine 5 MG TAB PO SCH (09:13)
[2020-07-11] MEDS: FUROSEMIDE 40 MG TAB PO SCH (09:13)
[2020-07-11] MEDS: GABAPENTIN 300 MG CAP PO SCH (09:15)
[2020-07-11 09:50] LABS: Basophils # (A) 0.03 X 10*3/uL (0.00-0.10); Basophils % (A) 0.5 %; Eosinophils # (A) 0.03 X 10*3/uL (0.04-0.35); Eosinophils % (A) 0.5 %; HCT 30.6 % (37.2-46.3); HGB 9.8 g/dL (12.0-15.0); Lymphocytes # (A) 0.85 X 10*3/uL (0.90-5.00); MCH 28.7 pg (27.0-32.0); MCV 89.7 fL (80.0-97.0); Mean Platelet Volume 10.4 fL (9.5-12.2); Monocytes # (A) 0.69 X 10*3/uL (0.20-1.00); Monocytes % (A) 11.4 %; Neutrophils # (A) 4.44 X 10*3/uL (1.80-7.70); Neutrophils % (A) 73.3 %; Platelet Count 177 X 10*3/uL (140-440); RBC 3.41 X 10*6/uL (4.10-5.20); RDW 14.4 % (11.5-14.5); WBC 6.06 X 10*3/uL (4.50-10.00)
== END 2020-07-11 11:26 | disposition home health service (06) ==
LOC: OR 12:59 → 4SSUR 16:42 → OR 07-09 16:11 → 4SSUR 07-09 16:11
PROVIDERS: ADMIT Orthopaedic Surgery; ATTEND Orthopaedic Surgery
DX: M17.0 Bilateral primary osteoarthritis of knee (principal); E78.5 Hyperlipidemia, unspecified; I10 Essential (primary) hypertension; K21.9 Gastro-esophageal reflux disease without esophagitis; G57.92 Unspecified mononeuropathy of left lower limb; J44.9 Chronic obstructive pulmonary disease, unspecified; R53.1 Weakness; F17.210 Nicotine dependence, cigarettes, uncomplicated; Z20.822 Contact with and (suspected) exposure to COVID-19; Z79.891 Long term (current) use of opiate analgesic; Z79.51 Long term (current) use of inhaled steroids; Z79.899 Other long term (current) drug therapy; Z88.8 Allergy status to other drugs, medicaments and biological substances; Z91.041 Radiographic dye allergy status; Z86.718 Personal history of other venous thrombosis and embolism; Z86.14 Personal history of Methicillin resistant Staphylococcus aureus infection; Z98.891 History of uterine scar from previous surgery; Z98.890 Other specified postprocedural states
CPT/HCPCS: 94640 ×5; 97116; 97161; 97165; 64999; 64448; 76942; 80053; 85025 ×2; 81001; 88300; 87635; 73560; 93971; 27447; G0378 ×3; C1776; C1713; S4990 ×3; J2250; J1100; J0690 ×2; J2405; J3010; J1650 ×4; J1170 ×5; J2795 ×2; J2704

== ENCOUNTER → 2021-09-26 | Outpatient (CLI) | payer MEDICARE ==
--- NOTE | 2021-09-27 11:49 | PE ---
EXAMINATION TYPE: PET CT fusion skull to thigh DATE OF EXAM: 09/26/2021 CLINICAL INDICATION:Female, 66 years old with history of R911, pulmonary nodule. TECHNIQUE: Following the intravenous administration of 11.65 mCi of F-18 FDG, whole body images are performed from the skull base to the midthigh. Images are reviewed on the computer in the coronal, axial, and sagittal planes. Reconstructed rotating images are created on independent workstation and reviewed on the computer. A non-contrast CT is performed in conjunction with the PET scan. Glucose level 101 mg/dL COMPARISON: CT None., PET/CT None., FINDINGS: Mediastinal SUV maximum is 2.4 . Hepatic parenchyma SUV maximum is 3.2. SKULL BASE AND NECK: No suspicious FDG activity. CHEST, MEDIASTINUM, AND HILAR REGION: No suspicious FDG activity. ABDOMEN AND PELVIS: No suspicious FDG activity. OSSEOUS STRUCTURES: No suspicious FDG activity. OTHER CT: Heart is mildly enlarged for size. There is mild atherosclerosis of the arterial vasculatur e. Streaky atelectasis changes are seen throughout the lungs. No evidence of focal consolidation, pne umothorax or pleural effusion. Secretions are seen layering along the wall of the trachea. Small fat- containing umbilical hernia. There is atherosclerosis of the arterial vasculature. Mild multilevel di sc degeneration changes seen throughout the spine. IMPRESSION: No suspicious FDG activity identified. No priors were available. If a prior is made available, an ad dendum can be made to address providers area of concern.
== END | disposition home or self-care (01) ==
LOC: RADPETMAIN 13:44
PROVIDERS: ATTEND Internal Medicine Critical Care Medicine
DX: R91.1 Solitary pulmonary nodule (principal)
CPT/HCPCS: 78815; A9552

== ENCOUNTER → 2023-12-14 | Outpatient (CLI) | payer MEDICARE ==
--- NOTE | 2023-12-14 15:22 | XR ---
EXAMINATION TYPE: XR chest 2V DATE OF EXAM: 12/14/2023 COMPARISON: None HISTORY: 60-year-old female R09.89, R05.8, cough, congestion, shortness of breath for one week TECHNIQUE: Frontal and lateral views FINDINGS: Heart upper limits of normal in size. Mild interstitial prominence. There is focal activity periphera l left basilar opacity. No other consolidation or pleural effusion. IMPRESSION: Some focal atelectasis or mild infiltrate along the periphery of the left base. [facility], , 12/14/2023 3:19 PM
== END | disposition home or self-care (01) ==
LOC: RADXRMAIN 14:40
PROVIDERS: ATTEND Family Medicine
CPT/HCPCS: 71046

== ENCOUNTER → 2023-12-30 | Outpatient (CLI) | payer MEDICARE ==
--- NOTE | 2023-12-30 20:52 | XR ---
EXAMINATION TYPE: XR chest 2V DATE OF EXAM: 12/30/2023 1:08 PM COMPARISON: None. CLINICAL INDICATION: Female, 68 years old with history of R05.8 OTHER SPECIFIED COUGH, TECHNIQUE: XR chest 2V view(s) obtained. FINDINGS: The heart size is normal. The pulmonary vasculature is normal. The lungs are clear. There is hyperinflation flattening the diaphragms compatible with COPD IMPRESSION: 1. No acute pulmonary process. 2. COPD [facility], , 12/30/2023 8:49 PM
== END | disposition home or self-care (01) ==
LOC: RADXRMAIN 12:44
PROVIDERS: ATTEND Internal Medicine
DX: J44.9 Chronic obstructive pulmonary disease, unspecified (principal)
CPT/HCPCS: 71046

== ENCOUNTER → 2024-08-28 | Outpatient (CLI) | payer MEDICARE ==
--- NOTE | 2024-08-28 22:03 | XR ---
EXAMINATION TYPE: XR chest 2V DATE OF EXAM: 08/28/2024 3:57 PM COMPARISON: 12/30/2023 CLINICAL INDICATION: Female, 69 years old with history of R06.00 DYSPNEA, UNSPECIFIED, shortness of b reath TECHNIQUE: Frontal and lateral views FINDINGS: The heart is borderline enlarged. Mild diffuse interstitial densities are present. Hazy lower lung de nsities likely relating to overlying soft tissue. A band of atelectasis at the left midlung. Otherwis e, no consolidation or pleural effusion. IMPRESSION: Borderline cardiomegaly. Interstitial prominence could reflect mild pulmonary vascular congestion, br onchitis, or asthma. Focal band of atelectasis at the left midlung. [facility], , 08/28/2024 10:00 PM
== END | disposition home or self-care (01) ==
LOC: RADXRMAIN 15:29
PROVIDERS: ATTEND Internal Medicine
DX: J98.11 Atelectasis (principal)
CPT/HCPCS: 71046